=== PATIENT | male | born 1960 | race Caucasian/White ===

== ENCOUNTER 2018-10-26 14:07 | Emergency (ER) | payer OTHER ==
[~2018-10-26] VITALS: Ht 182.9 cm; Wt 95.5 kg
[2018-10-26] MEDS ORDERED: COZAAR 50MG50 MG/TAB (14:18)
[2018-10-26 14:19] VITALS: BP 154/94; TEMP 98.9
[2018-10-26] MEDS ORDERED: PRILOSEC10 MG (14:19)
[2018-10-26 15:08] VITALS: PULSE 79
== END 2018-10-26 15:17 | disposition home or self-care (01) ==
LOC: COL.ER 14:07
DX: S81.812A Laceration without foreign body, left lower leg, initial encounter (principal); W19.XXXA Unspecified fall, initial encounter; Y92.002 Bathroom of unspecified non-institutional (private) residence as the place of occurrence of the external cause

== ENCOUNTER 2018-11-07 09:13 | Emergency (ER) | payer OTHER ==
[~2018-11-07 09:13] MED LIST: COZAAR 50MG50 MG/TAB; PRILOSEC10 MG
[2018-11-07 09:18] VITALS: BP 142/79; PULSE 71; TEMP 97.5
== END 2018-11-07 09:28 | disposition home or self-care (01) ==
LOC: COL.ER 09:13
DX: S81.812D Laceration without foreign body, left lower leg, subsequent encounter (principal); X58.XXXD Exposure to other specified factors, subsequent encounter

== ENCOUNTER 2020-09-29 06:27 | Emergency (ER) | payer OTHER ==
[~2020-09-29] VITALS: Ht 182.9 cm; Wt 96.4 kg
[2020-09-29 06:36] VITALS: TEMP 97.9
[2020-09-29 07:25] LABS: BASO # 0.1 (0.0-0.2); BASO % 0.5 % (0.0-2.0); EOS # 0.1 (0.0-0.7); EOS % 1.2 % (0-4.0); GRAN # 6.2 (1.4-6.5); GRAN % 67.1 % (42.2-75.2); LYMPH % 21.8 % (20.0-51.0); MEAN CELL VOLUME 91 fl (80.0-100.0); MEAN CORPUSCULAR HEMOGLOBIN 30 pg (27.0-31.0); MEAN CORPUSCULAR HGB CONC 33 g/dl (33.0-37.0); MEAN PLATELET VOLUME 9.7 fl (7.4-10.4); MONO # 0.8 (0.1-0.6); MONO % 9.1 % (1.7-9.3); PLATELET COUNT 218 K/mm3 (130-400); RED BLOOD COUNT 5.27 M/mm3 (4.20-5.60); REDCELL DISTRIBUTION WIDTH-CV 13.6 % (11.5-14.5)
[2020-09-29 07:35] LABS: ALANINE AMINOTRANSFERASE 20 U/L (4-49); ALBUMIN 4.3 gm/dL (3.5-5.0); ALKALINE PHOSPHATASE 76 U/L (50-136); ANION GAP 6 mmol/L (7-16); AST,SGOT 22 U/L (15-37); BILIRUBIN,TOTAL 0.5 mg/dL (0.0-1.0); BLOOD UREA NITROGEN 19 mg/dL (9-20); CALCIUM 10.3 mg/dL (8.4-10.2); CARBON DIOXIDE 26 mmol/L (22-30); CHLORIDE 110 mmol/L (98-107); CREATININE, serum 0.94 (0.66-1.25); GLUCOSE 92 mg/dL (74-106); POTASSIUM 4.1 mmol/L (3.4-5.0); SODIUM 141 mmol/L (137-145); TOTAL PROTEIN 7.4 gm/dL (6.4-8.2)
[2020-09-29 07:48] LABS: TROPONIN-I < 0.012 ng/mL (0.000-0.035)
[2020-09-29 08:16] VITALS: BP 140/93; PULSE 63
== END 2020-09-29 08:17 | disposition home or self-care (01) ==
LOC: COL.ER 06:27
PROVIDERS: Emergency Medicine
DX: R07.89 Other chest pain (principal); I10 Essential (primary) hypertension; F17.210 Nicotine dependence, cigarettes, uncomplicated; Z79.899 Other long term (current) drug therapy